=== PATIENT | male | born 1945 | race Native Hawaiian/Other Pacific Islander ===

== ENCOUNTER 2020-11-05 06:46 | Outpatient (CLI) | payer OTHER | END 2020-11-05 23:59 | disposition home or self-care (01) | LOC: LAB 06:46 | PROVIDERS: ATTEND Ophthalmology | DX: Z01.812 Encounter for preprocedural laboratory examination (principal); Z20.822 Contact with and (suspected) exposure to COVID-19 ==

== ENCOUNTER 2020-11-07 06:22 | Day surgery (SDC) | payer OTHER ==
[2020-11-07] MEDS ORDERED: KETOROLAC 0.5% OPHT DROP 3 ML BOTTLE ONE (06:58)
[2020-11-07] MEDS ORDERED: TROPICAMIDE 1% OPHT DROP 3 ML BOTTLE ONE (06:58)
[2020-11-07] MEDS ORDERED: CIPROFLOXACIN 0.3% OPHT DROP 2.5 ML BOTTLE ONE (06:59)
[2020-11-07] MEDS ORDERED: PHENYLEPHRINE 2.5% OPHT DROP 2 ML BOTTLE ONE (06:59)
[2020-11-07] MEDS ORDERED: CYCLOPENTOLATE 1% OPHT DROP 2 ML BOTTLE ONE (06:59)
[2020-11-07] MEDS ORDERED: BALANCED SALT IRRIG SOLN COMB1 500 ML, EPINEPHRINE-PF 1:1000 0.5 MG IO ONE (07:00)
[2020-11-07] MEDS ORDERED: BALANCED SALT IRRIG SOLN COMB1 0 ML ONE (07:36)
[2020-11-07] MEDS ORDERED: TRYPAN BLUE 0.5 ML DISP.SYRIN ONE (07:36)
[2020-11-07] MEDS ORDERED: NEO/POLYMYX B/DEXAME OPHT OINT 3.5 GM TUBE ONE (07:36)
[2020-11-07] MEDS ORDERED: ACETYLCHOLINE CHLORIDE 1% OPHT 1 EA KIT ONE (07:36)
[2020-11-07] MEDS ORDERED: MOXIFLOXACIN HCL 3 ML OPHT DROPS ONE (07:36)
[2020-11-07] MEDS ORDERED: BALANCED SALT IRRIG SOLN COMB2 15 ML IRRIG.SOLN ONE (07:36)
[2020-11-07] MEDS ORDERED: TIMOLOL MALEATE 0.5% OPHT DROP 5 ML BOTTLE ONE (07:36)
[2020-11-07] MEDS ORDERED: LIDOCAINE-MPF 2% 5 ML VIAL ONE (07:36)
[2020-11-07] MEDS ORDERED: BUPIVACAINE PF 0.5% 30 ML VIAL ONE (07:37)
[2020-11-07] MEDS ORDERED: HYALURONIDASE,OVINE 200 UNITS/ML VIAL ONE (07:37)
[2020-11-07] MEDS ORDERED: HYALURONATE SODIUM 12.8 MG/0.8 ML DISP.SYRIN ONE (07:37)
[2020-11-07] MEDS ORDERED: MIDAZOLAM HCL 2 MG/2 ML VIAL ONE (07:50)
[2020-11-07] MEDS ORDERED: FENTANYL CITRATE 100 MCG/2 ML AMPUL ONE (07:51)
== END 2020-11-07 11:45 | disposition home or self-care (01) ==
LOC: DS 06:22
PROVIDERS: ATTEND Ophthalmology
DX: H25.89 Other age-related cataract (principal); I13.11 Hypertensive heart and chronic kidney disease without heart failure, with stage 5 chronic kidney disease, or end stage renal disease; N18.30 Chronic kidney disease, stage 3 unspecified; I70.0 Atherosclerosis of aorta; N40.0 Benign prostatic hyperplasia without lower urinary tract symptoms; Z79.899 Other long term (current) drug therapy; Z98.890 Other specified postprocedural states
CPT/HCPCS: 66984; 71045; J0171; J3010; J3471; J3490 ×2; J7120; J7321; V2632; A4663; J2250; Q9968